=== PATIENT | female | born 1960 | race Caucasian/White ===

== ENCOUNTER → 2024-09-27 13:29 | Outpatient (CLI) | payer OTHER, SELFPAY | LOC: RESP 13:34 | PROVIDERS: Referring Provider Internal Medicine Cardiovascular Disease; Visit Provider Internal Medicine Cardiovascular Disease | DX: R06.09 Other forms of dyspnea (principal); F17.210 Nicotine dependence, cigarettes, uncomplicated; Z86.16 Personal history of COVID-19; Z59.00 Homelessness unspecified | CPT/HCPCS: 94060; 94726; 94729 ==

== ENCOUNTER → 2024-09-28 14:49 | Outpatient (CLI) | payer OTHER, SELFPAY ==
--- NOTE | 2024-10-03 17:00 | DI.NM.S_ITS ---
DATE OF SERVICE: 09/28/2024 PROCEDURE: Pharmacological perfusion study. INDICATIONS: Shortness of breath, leg edema, smoker, symptoms of heart failure. RADIOPHARMACEUTICAL: 26.2 mCi technetium-99m Myoview IV was injected at stress and 25.1 mCi technetium-99m Myoview IV was injected at rest. CARDIAC STRESS: The patient underwent IV Lexiscan perfusion study under the supervision of an attending staff using standard Lexiscan as per protocol. The patient remained hemodynamically stable. Baseline rhythm was sinus. During stress, no convincing ischemic changes seen. No significant arrhythmias. The patient had chest tightness with deep breathing during Lexiscan infusion. No typical anginal pain. Maximum blood pressure 140/100. Symptoms improved in recovery. RAW DATA: There is a significant breast shadow seen. The patient's weight is 250 pounds. GATED STUDY: Resting LV ejection fraction 77% and stress LV ejection fraction 85% without any obvious wall motion abnormalities. Resting end- diastolic volume 86 mL. TID ratio 0.91, which is within normal limits. Lung/heart ratio 0.42, which is within normal limits. MYOCARDIAL PERFUSION SCAN: Stress supine, resting supine, and stress prone images were compared to each other. Stress supine images revealed large size, severely decreased perfusion of anterior wall extending into the anteroapex, distal anteroseptum as well as lateral wall which got completely resolved during stress prone images suggestive of breast tissue attenuation artifact. Normal myocardial perfusion during stress prone images. CONCLUSION: I will call this study a normal myocardial perfusion study with evidence of significant breast tissue attenuation artifact which got resolved during stress prone images. Summed stress score and summed rest score 0 with difference score 0. Preserved LV function. Overall, low-risk myocardial perfusion scan. Maria Antonia Jimenez - [employer]/fn/MN doc#: [id number]/job#: [id number] dd: 10/03/2024 16:38:00 dt: 10/03/2024 16:48:00 DICTATING MD/COPIES TO: Shemar Munoz MD COPIES MNE: FARHEEN;
== END ==
PROVIDERS: Referring Provider Internal Medicine Cardiovascular Disease; Visit Provider Internal Medicine Cardiovascular Disease
DX: R06.09 Other forms of dyspnea (principal)
CPT/HCPCS: 78452; 93017; A9502; J2785

== ENCOUNTER → 2024-12-27 13:24 | Outpatient (CLI) | payer OTHER, SELFPAY ==
--- NOTE | 2024-12-27 13:26 | DI.ECHO.S_ITS ---
[facility] : : [id number] : : [place] : : [id number] : : Phone: [phone] Echocardiogram Report + + :Name: JOE CHAVEZ Study Date: 12/27/2024 Height: 64 in : :Hospital ReadingLocation: Weight: 256 lb : : Gender: Female BSA: 2.2 m2 : :: 1960 Age: 64 yrs BP: 153/97 mmHg: :Reason For Study: DYSPNEA ON EXERTION : :Ordering Physician: CYDNEY, : :NICK Performed By: Belinda Escalante : :Referring: NICK DEUTSCH : + + Interpretation Summary 1) Normal left ventricular thickness, size, wall motion, and systolic function (EF 60-65%). 2) Normal right ventricular size with mildly function. 3) No significant valvular abnormalities. 4) No prior Echo available for comparison. Procedure: A two-dimensional transthoracic echocardiogram with color flow and Doppler was performed. The study quality was technically adequate. There is no prior echocardiogram noted for this patient. The patient was in sinus rhythm with heart rates between 87-93 bpm during the exam. Left Ventricle: The left ventricle is normal in size and wall thickness. The ejection fraction is estimated to be 60-65%. Left ventricular systolic function appears normal without focal wall motion abnormalities. Right Ventricle: The right ventricle is normal size. Right ventricular systolic function is mildly reduced. Atria: The left atrial size is normal. Right atrial size is normal. There is no Doppler evidence for an interatrial shunt. Mitral Valve: The mitral valve leaflets appear to open well. There is no mitral regurgitation noted. Aortic Valve: The aortic valve is trileaflet. The aortic valve opens well. There is no aortic valve stenosis. No aortic regurgitation is present. Tricuspid Valve: The tricuspid valve leaflets are thin and pliable. No tricuspid regurgitation. Pulmonary artery pressures cannot be estimated because of the lack of a measurable TR jet velocity but the IVC suggests a CVP of around 3 mmHg. Pulmonic Valve: The pulmonic valve leaflets are thin and pliable; valve motion is normal. There is no pulmonic valvular regurgitation. Great Vessels: The aortic root is normal size. The dimensions of the ascending aorta are normal. The IVC is of normal diameter and collapses greater than 50% with a sniff. This suggests a low right atrial pressure of 3 mm Hg. Pericardium/ Pleura There is no pericardial effusion. There is no pleural effusion. MMode/2D Measurements & Calculations LVIDd: 4.0 cm LVOT diam: 2.0 cm LVIDs: 2.5 cm Ao root diam: 3.2 cm FS: 36.6 % asc Aorta Diam: 3.1 cm IVSd: 0.82 cm Ao Arch Diam (Prox Trans): 3.2 cm LVPWd: 0.85 cm LV truong. diameter/BSA (cm/m^2): 1.8 LV sys. diameter/BSA (cm/m^2): 1.2 LA A2 area: 14.2 cm2 RA long axis: 4.2 cm LA A4 area: 14.2 cm2 RA area: 11.2 cm2 LA length (vol): 4.9 cm RA vol: 25.8 ml LA vol: 35.0 ml RA : 11.9 ml/m2 LA vol index: 16.1 ml/m2 IVC diam: 1.0 cm RVD1 (basal): 2.7 cm TAPSE: 1.4 cm Doppler Measurements & Calculations Ao V2 max: 144.4 cm/sec LVOT Max Chivo: 116.2 cm/sec Ao V2 mean: 102.0 cm/sec LV V1 max P.4 mmHg Ao max P.4 mmHg LV V1 VTI: 22.4 cm Ao mean P.5 mmHg KINSEY(I,D): 3.0 cm2 Ao V2 VTI: 23.4 cm KINSEY(V,D): 2.5 cm2 sev ratio: 0.95 KINSEY indexed to BSA (cm^2/m^2): 1.4 MV E max chivo: 50.8 cm/sec PA V2 max: 129.0 cm/sec MV A max chivo: 85.6 cm/sec PA V2 mean: 85.7 cm/sec MV E/A: 0.59 PA mean P.3 mmHg Med Peak E' Chivo: 7.5 cm/sec PA pr(Accel): 35.3 mmHg E/E' med: 6.8 Lat Peak E' Chivo: 7.6 cm/sec E/E' lat: 6.7 E/e' average: 6.8 MV dec time: 0.34 sec SV(LVOT): 69.5 ml Reading Physician:08:48 AM
== END ==
PROVIDERS: Referring Provider Internal Medicine Cardiovascular Disease; Visit Provider Internal Medicine Cardiovascular Disease
DX: R06.09 Other forms of dyspnea (principal)
CPT/HCPCS: 93306